=== PATIENT | male | born 2000 | race Hispanic/Latino ===

== ENCOUNTER 2018-04-29 13:56 | Inpatient (IN) | payer OTHER ==
[2018-04-29 15:33] LABS: HEMOGLOBIN 14.1 g/dl (13.5-17.5); MEAN CORPUSCULAR HEMOGLOBIN 27.8 pg (27.0-33.0); MEAN CORPUSCULAR HGB CONC 34.4 g/dl (32.0-36.5); MEAN CORPUSCULAR VOLUME 80.9 fl (80.0-96.0); RED BLOOD COUNT 5.07 10^6/uL (4.30-6.10); RED CELL DISTRIBUTION WIDTH 13.9 % (11.5-14.5); WHITE BLOOD COUNT 7.5 10^3/uL (4.0-10.0)
[2018-04-29 15:53] LABS: PLATELET COUNT, AUTOMATED 89 10^3/uL (150-450)
[2018-04-29 15:54] LABS: IMMATURE PLATELET FRACTION % 39.4 % (0.0-10.9)
[2018-04-29 15:56] LABS: AMPHETAMINES LEVEL URINE NEGATIVE (NEGATIVE); BARBITURATES URINE NEGATIVE (NEGATIVE); BENZODIAZEPINES URINE NEGATIVE (NEGATIVE); CANNABINOIDS URINE NEGATIVE (NEGATIVE); COCAINE METABOLITE URINE NEGATIVE (NEGATIVE); METHADONE URINE NEGATIVE (NEGATIVE); OPIATES URINE NEGATIVE (NEGATIVE); PHENCYCLIDINE URINE NEGATIVE (NEGATIVE)
[2018-04-29 16:08] LABS: ACETAMINOPHEN LEVEL < 2.0 UG/ML (10.0-30.0); ALBUMIN 4.3 GM/DL (3.2-5.2); ALBUMIN/GLOBULIN RATIO 1.54 (1.00-1.93); ALKALINE PHOSPHATASE 93 U/L (45-117); ALT/SGPT 27 U/L (12-78); ANION GAP 7 MEQ/L (8-16); AST/SGOT 26 U/L (7-37); BILIRUBIN,DIRECT < 0.1 MG/DL (0.0-0.2); BILIRUBIN,TOTAL 0.5 MG/DL (0.2-1.0); BLOOD UREA NITROGEN 16 MG/DL (7-18); CARBON DIOXIDE LEVEL 27 MEQ/L (21-32); CHLORIDE LEVEL 105 MEQ/L (98-107); CREATININE FOR GFR 1.08 MG/DL (0.70-1.30); ETHYL ALCOHOL (ETHANOL) < 0.003 % (0.000-0.010); GLUCOSE, FASTING 96 MG/DL (70-100); POTASSIUM SERUM 4.2 MEQ/L (3.5-5.1); SALICYLATE LEVEL < 1.7 MG/DL (5.0-30.0); SODIUM LEVEL 139 MEQ/L (136-145); THYROID STIMULATING HORMONE 0.877 uIU/ML (0.463-3.98); TOTAL PROTEIN 7.1 GM/DL (6.4-8.2)
[2018-04-29] MEDS ORDERED: MAALOX 30 ML SUSP *UDC PO (18:30)
[2018-04-29] MEDS ORDERED: MOM 30ML SUSPENSION UDC PO (18:30)
[2018-04-29] MEDS ORDERED: ACETAMINOPHEN TAB 650MG DOSE (2X325MG) PO (18:30)
[2018-04-29] MEDS ORDERED: traZODone 50 MG TAB PO (18:30)
[2018-04-30] MEDS ORDERED: hydrOXYzine 25 MG TAB PO (11:15)
[2018-04-30] MEDS: ESCITALOPRAM OXALATE 10 MG TAB (LEXAPRO) PO (11:45)
[2018-05-01] MEDS: INFLUENZA QUADRIVALENT PF VACCINE 0.5ML SYRINGE (90686) IM (09:36)
[2018-05-01] MEDS: ESCITALOPRAM OXALATE 10 MG TAB (LEXAPRO) PO (09:36)
[2018-05-02] MEDS: ESCITALOPRAM OXALATE 10 MG TAB (LEXAPRO) PO (09:43)
[2018-05-03] MEDS: ESCITALOPRAM OXALATE 10 MG TAB (LEXAPRO) PO (08:34)
[2018-05-03 11:37] LABS: HEMATOCRIT 43.7 % (42.0-52.0); MEAN CORPUSCULAR HEMOGLOBIN 27.6 pg (27.0-33.0); MEAN CORPUSCULAR HGB CONC 34.3 g/dl (32.0-36.5); MEAN CORPUSCULAR VOLUME 80.5 fl (80.0-96.0); RED BLOOD COUNT 5.43 10^6/uL (4.30-6.10); RED CELL DISTRIBUTION WIDTH 13.8 % (11.5-14.5); WHITE BLOOD COUNT 6.1 10^3/uL (4.0-10.0)
[2018-05-03 11:41] LABS: IMMATURE PLATELET FRACTION % 44.6 % (0.0-10.9); PLATELET COUNT, AUTOMATED 99 10^3/uL (150-450)
[2018-05-04] MEDS: ESCITALOPRAM OXALATE 10 MG TAB (LEXAPRO) PO (09:56)
[2018-05-04 10:32] LABS: HEMATOCRIT 43.1 % (42.0-52.0); HEMOGLOBIN 14.9 g/dl (13.5-17.5); MEAN CORPUSCULAR HGB CONC 34.6 g/dl (32.0-36.5); RED BLOOD COUNT 5.32 10^6/uL (4.30-6.10); RED CELL DISTRIBUTION WIDTH 13.8 % (11.5-14.5); WHITE BLOOD COUNT 6.2 10^3/uL (4.0-10.0)
[2018-05-04 10:41] LABS: PLATELET COUNT, AUTOMATED 92 10^3/uL (150-450)
[2018-05-05] MEDS: ESCITALOPRAM OXALATE 10 MG TAB (LEXAPRO) PO (09:28)
[2018-05-05 09:55] LABS: HEMATOCRIT 44.9 % (42.0-52.0); HEMOGLOBIN 15.4 g/dl (13.5-17.5); MEAN CORPUSCULAR HEMOGLOBIN 27.8 pg (27.0-33.0); MEAN CORPUSCULAR HGB CONC 34.3 g/dl (32.0-36.5); MEAN CORPUSCULAR VOLUME 81.2 fl (80.0-96.0); PLATELET COUNT, AUTOMATED 100 10^3/uL (150-450); RED BLOOD COUNT 5.53 10^6/uL (4.30-6.10); RED CELL DISTRIBUTION WIDTH 13.7 % (11.5-14.5); WHITE BLOOD COUNT 6.7 10^3/uL (4.0-10.0)
[2018-05-05 10:02] LABS: REASON FOR REVIEW PLATELET MORPHOLOGY; SLIDE REVIEW Report; SOURCE PERIPHERAL SMEAR
[2018-05-05 10:31] LABS: ALBUMIN 4.2 GM/DL (3.2-5.2); ALBUMIN/GLOBULIN RATIO 1.27 (1.00-1.93); ALKALINE PHOSPHATASE 101 U/L (45-117); ALT/SGPT 24 U/L (12-78); ANION GAP 7 MEQ/L (8-16); AST/SGOT 17 U/L (7-37); BILIRUBIN,TOTAL 0.5 MG/DL (0.2-1.0); BLOOD UREA NITROGEN 18 MG/DL (7-18); CALCIUM LEVEL 9.3 MG/DL (8.5-10.1); CARBON DIOXIDE LEVEL 29 MEQ/L (21-32); CHLORIDE LEVEL 104 MEQ/L (98-107); CREATININE FOR GFR 1.25 MG/DL (0.70-1.30); GLUCOSE, FASTING 77 MG/DL (70-100); POTASSIUM SERUM 4.3 MEQ/L (3.5-5.1); SODIUM LEVEL 140 MEQ/L (136-145); TOTAL PROTEIN 7.5 GM/DL (6.4-8.2)
[2018-05-05 11:00] LABS: INR 1.19; PROTHROMBIN TIME 15.2 SECONDS (12.1-14.4)
[2018-05-05 11:01] LABS: PARTIAL THROMBOPLASTIN TIME 32.3 SECONDS (25.4-37.6)
[2018-05-05 12:11] LABS: HEPATITIS A ANTIBODY IGM NEGATIVE (NEGATIVE); HEPATITIS B CORE ANTIBODY IGM NEGATIVE (NEGATIVE); HEPATITIS B SURFACE ANTIGEN NEGATIVE (NEGATIVE); HIV 1&2 SCREEN CENTAUR NEGATIVE (NEGATIVE)
[2018-05-05 12:11] LABS: HEPATITIS C VIRUS ABY INDEX 0.1 INDEX (<0.8)
[2018-05-06 07:24] LABS: HEMOGLOBIN 15.4 g/dl (13.5-17.5); MEAN CORPUSCULAR HEMOGLOBIN 27.7 pg (27.0-33.0); MEAN CORPUSCULAR HGB CONC 34.2 g/dl (32.0-36.5); MEAN CORPUSCULAR VOLUME 81.1 fl (80.0-96.0); RED BLOOD COUNT 5.55 10^6/uL (4.30-6.10); RED CELL DISTRIBUTION WIDTH 13.8 % (11.5-14.5); WHITE BLOOD COUNT 7.5 10^3/uL (4.0-10.0)
[2018-05-06 07:28] LABS: PLATELET COUNT, AUTOMATED 92 10^3/uL (150-450); POSITIVE MORPH POS FLAG; SUSPECT SAMPLE POS FLAG
[2018-05-06 07:29] LABS: IMMATURE PLATELET FRACTION % 43.1 % (0.0-10.9); PLATELET F 98
[2018-05-06] MEDS: ESCITALOPRAM OXALATE 10 MG TAB (LEXAPRO) PO (09:48)
== END 2018-05-06 12:10 | disposition home or self-care (01) | DRG 885 ==
LOC: M ED 13:56 → M ED INP 18:22 → M PSY 20:32
PROVIDERS: Psychiatry & Neurology Psychiatry
DX: F33.1 Major depressive disorder, recurrent, moderate (principal); D69.3 Immune thrombocytopenic purpura

== ENCOUNTER 2019-01-21 16:08 | Inpatient (IN) | payer OTHER ==
[~2019-01-21] VITALS: Ht 172.7 cm; Wt 72.4 kg
[~2019-01-21 16:08] MED LIST: ESCI10TA2 PO
[2019-01-21] MEDS ORDERED: VITAD1000T PO (16:16)
[2019-01-21 16:55] LABS: HEMATOCRIT 43.4 % (42.0-52.0); HEMOGLOBIN 15.3 g/dl (13.5-17.5); MEAN CORPUSCULAR HGB CONC 35.3 g/dl (32.0-36.5); MEAN CORPUSCULAR VOLUME 79.5 fl (80.0-96.0); PLATELET COUNT, AUTOMATED 126 10^3/uL (150-450); RED BLOOD COUNT 5.46 10^6/uL (4.30-6.10); WHITE BLOOD COUNT 10.3 10^3/uL (4.0-10.0)
[2019-01-21 17:26] LABS: AMPHETAMINES LEVEL URINE NEGATIVE (NEGATIVE); BARBITURATES URINE NEGATIVE (NEGATIVE); BENZODIAZEPINES URINE NEGATIVE (NEGATIVE); CANNABINOIDS URINE NEGATIVE (NEGATIVE); COCAINE METABOLITE URINE NEGATIVE (NEGATIVE); METHADONE URINE NEGATIVE (NEGATIVE); OPIATES URINE NEGATIVE (NEGATIVE); PHENCYCLIDINE URINE NEGATIVE (NEGATIVE)
[2019-01-21 17:52] LABS: ACETAMINOPHEN LEVEL < 2.0 UG/ML (10.0-30.0); ALBUMIN 4.5 GM/DL (3.2-5.2); ALT/SGPT 38 U/L (12-78); BILIRUBIN,DIRECT 0.2 MG/DL (0.0-0.2); BILIRUBIN,TOTAL 0.5 MG/DL (0.2-1.0); BLOOD UREA NITROGEN 19 MG/DL (7-18); CALCIUM LEVEL 9.3 MG/DL (8.5-10.1); CARBON DIOXIDE LEVEL 25 MEQ/L (21-32); CHLORIDE LEVEL 106 MEQ/L (98-107); CREATININE FOR GFR 1.23 MG/DL (0.70-1.30); ETHYL ALCOHOL (ETHANOL) < 0.003 % (0.000-0.010); GLUCOSE, FASTING 99 MG/DL (70-100); POTASSIUM SERUM 3.9 MEQ/L (3.5-5.1); SALICYLATE LEVEL < 1.7 MG/DL (5.0-30.0); SODIUM LEVEL 139 MEQ/L (136-145); TOTAL PROTEIN 7.7 GM/DL (6.4-8.2)
[2019-01-21] MEDS ORDERED: ACETAMINOPHEN TAB 650MG DOSE (2X325MG) PO PRN (19:15)
[2019-01-21] MEDS ORDERED: NICOTINE 21MG/24HR 1 EA TRANSDERMAL TD PRN (19:15)
[2019-01-21] MEDS ORDERED: MAALOX 30 ML SUSP *UDC PO PRN (19:15)
[2019-01-21] MEDS ORDERED: traZODone 50 MG TAB PO PRN (19:15)
[2019-01-21] MEDS ORDERED: MOM 30ML SUSPENSION UDC PO PRN (19:15)
[2019-01-21 20:43] VITALS: BP 128/77
[2019-01-22 06:34] VITALS: BP 124/77
--- NOTE | 2019-01-22 08:43 | HPEPDOC ---
General Date of Admission Jan 21, 2019 at 19:10 Date of Service: Jan 22, 2019 Attending Physician: KANG LUJAN MD Chief Complaint The patient is a 18-year-old male admitted with a reason for visit of Psych Problem. History of Present Illness Mateo Ellison is a 18 year old male , currently in active duty, prior medical history significant for thrombocytopenia, depression, admitted to inpatient psychiatric unit on account of suicidal ideation. Patient is followed by oncology. Hematology and had an appointment with them on Saturday, 2 days ago at this facility. On assessment, he denies any symptoms of chest pain, shortness of breath, chills, weakness, fever. Home Medications Scheduled Vitamin D (Vitamin D3) 1,000 Unit Tablet, 1,000 UNITS PO DAILY, (Reported) Allergies Coded Allergies: No Known Allergies (Unverified , 04/29/18) Past Medical History Medical History Thrombocytopenia Depression Surgical History Denies surgical history Family History Significant Family History: No pertinent family hx Social History * Smoker: Denies Alcohol: Denies Drugs: denies A-FIB/CHADSVASC A-FIB History Current/History of A-Fib/PAF?: No Current PO Anticoag Therapy: No Age/Risk Factor Scoring CHADSVASC: CHADSVASC Response (Comments) Value Gender Risk Factor Male 0 Total 0 Review of Systems Other systems A pertinent 10 point review of systems is completed, negative except as stated in the history of presenting illness Physical Examination Other physical findings GENERAL: NAD SKIN : Warm, dry intact HEENT: Atraumatic, normocephalic, PERRL, moist mucous membrane CARDIOVASCULAR: Regular rate and rhythm, S1S2, no JVD, no edema, distal pulses + palpable RESP: CTAB, no accessory muscle use noted ABDOMEN: BS+ non distended non tender MS: no joint deformities NEURO: Alert and oriented x 3, CN2-12 grossly intact PSYCH: flat affect. Vital Signs Vital Signs Date Time Temp Pulse Resp B/P (MAP) Pulse Ox O2 Delivery O2 Flow Rate FiO2 01/22/19 06:34 98.4 60 14 124/77 (93) 01/21/19 20:43 97 01/21/19 20:10 Room Air Laboratory Data Labs 24H Laboratory Tests 2 01/21/19 16:34: Nucleated Red Blood Cells % (auto) 0.0, Anion Gap 8, Calcium Level 9.3, Aspartate Amino Transf (AST/SGOT) 44H, Alanine Aminotransferase (ALT/SGPT) 38, Alkaline Phosphatase 107, Total Bilirubin 0.5, Direct Bilirubin 0.2, Total Protein 7.7, Albumin 4.5, Albumin/Globulin Ratio 1.41, Thyroid Stimulating Hormone (TSH) 1.180, Salicylates Level < 1.7L, Urine Amphetamines Screen NEGATIVE, Urine Benzodiazepines Screen NEGATIVE, Urine Opiates Screen NEGATIVE, Urine Methadone Screen NEGATIVE, Acetaminophen Level < 2.0L, Urine Barbiturates Screen NEGATIVE, Urine Phencyclidine Screen NEGATIVE, Urine Cocaine Metabolite Screen NEGATIVE, Urine Cannabinoids Screen NEGATIVE, Ethyl Alcohol Level < 0.003 CBC/BMP Laboratory Tests 01/21/19 16:34 Red Blood Count 5.46, Mean Corpuscular Volume 79.5 L, Mean Corpuscular Hemoglobin 28.0, Mean Corpuscular Hemoglobin Concent 35.3, Red Cell Distribution Width 13.1 Assessment/Plan Thrombocytopenia Suicidal ideation PLAN Followed by hematology medical records specialist in the outpatient setting for management and evaluation of thrombocytopenia Current acute psychiatric problems and been evaluated and managed by primary team Patient has no medical problems at this time requiring active medical assessment and follow-up Please reconsult medical team as needed Plan / VTE VTE Prophylaxis Ordered?: No VTE Exclusion Mechanical Proph: Low Risk for VTE JESSICA RIVAS CRIMINAL ATTORNEY Jan 22, 2019 08:43
[2019-01-22] MEDS: VITAMIN D 1,000 INTERNATIONAL UNITS TABLET PO SCH (09:45)
[2019-01-22] MEDS: buPROPion **XL** TABLET 150MG (WELLBUTRIN XL) PO SCH (16:54)
[2019-01-22 18:00] VITALS: BP 145/87
[2019-01-23 06:47] VITALS: BP 116/55
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
[2019-01-23] MEDS: buPROPion **XL** TABLET 150MG (WELLBUTRIN XL) PO SCH (09:04)
[2019-01-23] MEDS: VITAMIN D 1,000 INTERNATIONAL UNITS TABLET PO SCH (09:04)
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
[2019-01-23 14:30] VITALS: BP 116/55
[2019-01-23 17:31] VITALS: BP 129/64
[2019-01-23 19:37] VITALS: BP 129/64
[2019-01-24 06:38] VITALS: BP 114/61
[2019-01-24] MEDS: VITAMIN D 1,000 INTERNATIONAL UNITS TABLET PO SCH (09:38)
[2019-01-24] MEDS: buPROPion **XL** TABLET 150MG (WELLBUTRIN XL) PO SCH (09:38)
[2019-01-24 18:00] VITALS: BP 126/70
[2019-01-25 06:48] VITALS: BP 125/88
[2019-01-25] MEDS: buPROPion **XL** TABLET 150MG (WELLBUTRIN XL) PO SCH (09:00)
[2019-01-25] MEDS: VITAMIN D 1,000 INTERNATIONAL UNITS TABLET PO SCH (09:00)
[2019-01-25 18:00] VITALS: BP 135/75
[2019-01-25 20:08] VITALS: BP 135/75
[2019-01-26 06:42] VITALS: BP 129/70
--- NOTE | 2019-01-26 07:52 | MHIPN ---
DATE OF SERVICE: 01/24/2019 The patient today tells me that he is no longer feeling depressed, that he slept good, and that he is not suicidal or homicidal. He said he is tolerating the Wellbutrin well. MENTAL STATUS EXAMINATION: He is alert and oriented times three. Eye contact is fairly good. He is verbally spontaneous and no formal thought disorder noted. Mood is good. Affect full range and appropriate. He is not psychotic, suicidal or homicidal. Concentration and memory is good. Insight and judgment is fair. DIAGNOSIS: Unspecified depressive disorder. TREATMENT PLAN: At this point we will continue to monitor the patient for continue elevation and stabilization on his mood and continued resolution of suicidal ideations.
[2019-01-26] MEDS: buPROPion **XL** TABLET 150MG (WELLBUTRIN XL) PO SCH (08:40)
[2019-01-26] MEDS: VITAMIN D 1,000 INTERNATIONAL UNITS TABLET PO SCH (08:40)
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
[2019-01-26] MEDS ORDERED: BUPR150T3 PO (10:18)
== END 2019-01-26 13:52 | disposition home or self-care (01) | DRG 881 ==
LOC: M ED 16:08 → M ED INP 19:10 → M PSY 20:20
PROVIDERS: ADMIT Psychiatry & Neurology Addiction Medicine; ATTEND Psychiatry & Neurology Addiction Medicine
DX: F32.9 Major depressive disorder, single episode, unspecified (principal); R45.851 Suicidal ideations; D69.6 Thrombocytopenia, unspecified

== ENCOUNTER → 2019-03-10 | Outpatient (CLI) | payer OTHER ==
[~2019-03-10] MED LIST changes: +BUPR150T3 PO; +CHOL100029 PO; +FERR325T3 PO
--- NOTE | 2019-03-10 11:06 | REP ---
LEFT UPPER QUADRANT ULTRASOUND: Real-time sonographic evaluation of the left upper quadrant performed. The spleen is normal in size with no intrinsic abnormality. It measures 9.5 x 4.6 x 9.5 cm. Left kidney is normal in size and echotexture, measuring 9.6 x 3.9 x 5.1 cm. There is no hydronephrosis, nephrolithiasis or renal mass identified. IMPRESSION: Negative left upper quadrant ultrasound. No evidence of splenomegaly. Electronically Signed by John Chaidez MD 03/11/2019 10:52 A
== END ==
LOC: M RAD 09:16
PROVIDERS: ATTEND Internal Medicine
DX: R16.1 Splenomegaly, not elsewhere classified (principal)